=== PATIENT | female | born 1930 | race Caucasian/White ===

== ENCOUNTER → 2017-03-21 | Outpatient (CLI) | payer MEDICARE ==
[2014-06-19 15:42] VITALS: BP 133/53
[~2017-03-21] MED LIST: AMIT10TA PO; FENO135C PO; METO100T5 PO; OLME1TAB25 PO
--- NOTE | 2017-03-21 15:48 | RAD ---
DATE: 03/21/2017. EXAM: DIGITAL SCREEN BILAT W/CAD. HISTORY: Routine mammographic screening. COMPARISON: 02/15/2016, 02/01/2015, 03/21/2009. This study was interpreted with the benefit of Computerized Aided Detection (CAD). FINDINGS: The breast parenchyma heterogeneously dense, which could reduce sensitivity of mammography. There are no suspicious masses, microcalcifications or architectural distortion. A density laterally on the left CC view correlates with a previously marked skin lesion. Scattered and vascular calcifications are benign. BI-RADS CATEGORY: 2 BENIGN FINDING(S). RECOMMENDED FOLLOW-UP: 12M 12 MONTH FOLLOW-UP. PQRS compliance statement: Patient information was entered into a reminder system with a target due date 03/21/2018 for the next mammogram. Mammography is a sensitive method for finding small breast cancers, but it does not detect them all and is not a substitute for careful clinical examination. A negative mammogram does not negate a clinically suspicious finding and should not result in delay in biopsying a clinically suspicious abnormality. "Our facility is accredited by the [employer] Mammography Program."
== END ==
LOC: MAMMO 12:54
PROVIDERS: ATTEND Internal Medicine
DX: Z12.31 Encounter for screening mammogram for malignant neoplasm of breast (principal)
CPT/HCPCS: G0202; 77067

== ENCOUNTER 2017-11-06 17:46 | Inpatient (IN) | payer MEDICARE ==
[2017-11-06 18:20] LABS: ADD MAN DIFF? NO
[2017-11-06 18:22] LABS: BASO % 0 % (0-3); EOS % 0 % (0-3); HEMATOCRIT 31.1 % (36.0-47.0); HEMOGLOBIN 10.6 g/dL (12.0-15.5); LYMPH # 1.1 x10^3/uL (1.0-4.8); LYMPH % 25 % (24-48); MEAN CORPUSCULAR HEMOGLOBIN 30 pg (25-35); MEAN CORPUSCULAR HGB CONC 34 g/dL (31-37); MEAN CORPUSCULAR VOLUME 90 fL (79-100); MONO # 0.3 x10^3/uL (0.0-1.1); MONO % 8 % (0-9); NEUT # 2.9 x10^3uL (1.8-7.7); NEUT % 66 % (31-73); PLATELET COUNT 210 x10^3/uL (140-400); RED BLOOD COUNT 3.47 x10^6/uL (3.50-5.40); RED CELL DISTRIBUTION WIDTH 12.8 % (11.5-14.5); WHITE BLOOD COUNT 4.3 x10^3/uL (4.0-11.0)
[2017-11-06 18:37] LABS: ANION GAP 15 (6-14); BLOOD UREA NITROGEN 24 mg/dL (7-20); BUN/CREATININE RATIO 17 (6-20); CALCIUM 8.8 mg/dL (8.5-10.1); CARBON DIOXIDE 22 mmol/L (21-32); CHLORIDE 95 mmol/L (98-107); CREATININE 1.4 mg/dL (0.6-1.0); GFR 35.5; GLUCOSE 111 mg/dL (70-99); POTASSIUM 3.2 mmol/L (3.5-5.1); SODIUM 132 mmol/L (136-145)
[2017-11-06 18:43] LABS: ALBUMIN 3.4 g/dL (3.4-5.0); ALK PHOS 63 U/L (46-116); ALT (SGPT) 21 U/L (14-59); AST (SGOT) 28 U/L (15-37); CREATINE KINASE 119 U/L (26-192); LIPASE 49 U/L (73-393); MAGNESIUM 1.1 mg/dL (1.8-2.4); TOTAL BILIRUBIN 0.4 mg/dL (0.2-1.0); TOTAL PROTEIN 6.7 g/dL (6.4-8.2)
[2017-11-06 18:43] LABS: TROPONINI < 0.017 ng/mL (0.000-0.055)
[2017-11-06 18:47] LABS: NT-PRO BNP 1531 pg/mL (0-449)
[2017-11-06 18:56] LABS: BILIRUBIN,URINE NEGATIVE (NEG); CLARITY,URINE CLEAR; COLOR,URINE YELLOW; GLUCOSE,URINE NEGATIVE (NEG); NITRITE,URINE NEGATIVE (NEG); PH,URINE 5.5; PROTEIN,URINE NEGATIVE (NEG-TRACE); UROBILINOGEN,URINE 0.2 mg/dL (0.2 mg/dL)
[2017-11-06] MEDS ORDERED: fentaNYL PF VIAL 100 MCG/2 ML VIAL IV (19:00)
[2017-11-06 19:01] LABS: BACTERIA,URINE 0 /HPF (0-FEW); RBC,URINE 0 /HPF (0-2); SQUAMOUS EPITHELIAL CELL,UR FEW /LPF; WBC,URINE 0 /HPF (0-4)
[2017-11-06] MEDS: MAGNESIUM OXIDE 400 MG TABLET PO (19:39)
[2017-11-06] MEDS: POTASSIUM CHLORIDE 20 MEQ TABLET.ER. PO (19:39)
[2017-11-06] MEDS: POTASSIUM CL 40MEQ IN 0.9%NACL 1,000 ML IV (19:40)
[2017-11-06] MEDS: MAGNESIUM SULFATE 2GM 50 ML IV (19:40)
[2017-11-06] MEDS: ONDANSETRON PF 4 MG/2 ML VIAL. IV (20:55)
[2017-11-06] MEDS: CIPROFLOXACIN 400MG PREMIX 200 ML IV (23:24)
[2017-11-07 05:50] LABS: ADD MAN DIFF? NO
[2017-11-07 06:10] LABS: BASO % 0 % (0-3); EOS % 1 % (0-3); HEMATOCRIT 31.4 % (36.0-47.0); HEMOGLOBIN 10.7 g/dL (12.0-15.5); LYMPH # 0.8 x10^3/uL (1.0-4.8); LYMPH % 18 % (24-48); MEAN CORPUSCULAR HEMOGLOBIN 31 pg (25-35); MEAN CORPUSCULAR HGB CONC 34 g/dL (31-37); MEAN CORPUSCULAR VOLUME 91 fL (79-100); MONO # 0.3 x10^3/uL (0.0-1.1); MONO % 7 % (0-9); NEUT # 3.3 x10^3uL (1.8-7.7); NEUT % 74 % (31-73); PLATELET COUNT 215 x10^3/uL (140-400); RED BLOOD COUNT 3.46 x10^6/uL (3.50-5.40); RED CELL DISTRIBUTION WIDTH 12.6 % (11.5-14.5); WHITE BLOOD COUNT 4.5 x10^3/uL (4.0-11.0)
[2017-11-07] MEDS ORDERED: fentaNYL PF VIAL 100 MCG/2 ML VIAL IV (06:30)
[2017-11-07 06:31] LABS: ANION GAP 12 (6-14); BLOOD UREA NITROGEN 18 mg/dL (7-20); CALCIUM 8.5 mg/dL (8.5-10.1); CARBON DIOXIDE 21 mmol/L (21-32); CHLORIDE 105 mmol/L (98-107); CREATININE 1.3 mg/dL (0.6-1.0); GFR 38.7; GLUCOSE 102 mg/dL (70-99); POTASSIUM 4.5 mmol/L (3.5-5.1); SODIUM 138 mmol/L (136-145)
[2017-11-07 06:46] LABS: MAGNESIUM 1.9 mg/dL (1.8-2.4)
[2017-11-07] MEDS: METOPROLOL TART IMMED RELEASE 50 MG TABLET. PO ×2 (08:08→21:14)
[2017-11-07] MEDS: AMITRIPTYLINE HCL 10 MG TABLET. PO (08:09)
[2017-11-07] MEDS: LOSARTAN POTASSIUM 25 MG TABLET. PO (08:09)
[2017-11-07] MEDS: FUROSEMIDE 40 MG/4 ML VIAL. IVP (16:18)
[2017-11-07] MEDS: PANTOPRAZOLE 40 MG TABLET.DR. PO (16:19)
[2017-11-07] MEDS ORDERED: FUROSEMIDE 40 MG/4 ML VIAL. IVP (17:00)
[2017-11-07 17:12] LABS: BASE EXCESS ABG -2 mmol/L (-3-3); HCO3 ABG 22 mmol/L (21-28); PCO2 ABG 34 mmHg (35-46); PH ABG 7.42 (7.35-7.45); PO2 ABG 64 mmHg (65-108); SAT O2 ABG 92 % (92-99)
[2017-11-07] MEDS: ISOSORBIDE MONONITRATE ER 30 MG TAB.ER.24H PO (17:13)
[2017-11-07] MEDS ORDERED: hydrALAZINE 20 MG/ML VIAL. IVP (17:15)
[2017-11-07 17:20] LABS: FIO2 ABG 100
[2017-11-07] MEDS: ONDANSETRON PF 4 MG/2 ML VIAL. IV (18:42)
[2017-11-07 20:13] LABS: C DIFF BY PCR Negative (Negative)
[2017-11-07] MEDS ORDERED: HYDROcodone/APAP 5/325MG 1 TAB TABLET PO (20:15)
[2017-11-07] MEDS: ACETAMINOPHEN 325 MG TABLET. PO (20:26)
[2017-11-07] MEDS: CIPROFLOXACIN 400MG PREMIX 200 ML IV (21:12)
[2017-11-07] MEDS: LACTOBACILLUS RHAMNOSUS GG 1 CAPSULE. PO (21:14)
[2017-11-08 04:22] LABS: MRSA BY PCR Negative (Negative)
[2017-11-08 04:51] LABS: ADD MAN DIFF? NO
[2017-11-08 04:55] LABS: BASO % 0 % (0-3); EOS % 0 % (0-3); HEMOGLOBIN 10.5 g/dL (12.0-15.5); LYMPH # 1.1 x10^3/uL (1.0-4.8); LYMPH % 17 % (24-48); MEAN CORPUSCULAR HEMOGLOBIN 31 pg (25-35); MEAN CORPUSCULAR HGB CONC 34 g/dL (31-37); MEAN CORPUSCULAR VOLUME 91 fL (79-100); MONO # 0.7 x10^3/uL (0.0-1.1); MONO % 11 % (0-9); NEUT # 4.9 x10^3uL (1.8-7.7); NEUT % 72 % (31-73); PLATELET COUNT 212 x10^3/uL (140-400); RED BLOOD COUNT 3.42 x10^6/uL (3.50-5.40); RED CELL DISTRIBUTION WIDTH 12.9 % (11.5-14.5); WHITE BLOOD COUNT 6.8 x10^3/uL (4.0-11.0)
[2017-11-08 05:19] LABS: ANION GAP 8 (6-14); BLOOD UREA NITROGEN 14 mg/dL (7-20); CALCIUM 8.4 mg/dL (8.5-10.1); CARBON DIOXIDE 28 mmol/L (21-32); CHLORIDE 102 mmol/L (98-107); CREATININE 1.3 mg/dL (0.6-1.0); GFR 38.7; GLUCOSE 107 mg/dL (70-99); MAGNESIUM 1.4 mg/dL (1.8-2.4); POTASSIUM 3.5 mmol/L (3.5-5.1); SODIUM 138 mmol/L (136-145)
[2017-11-08] MEDS: LACTOBACILLUS RHAMNOSUS GG 1 CAPSULE. PO ×2 (08:24→20:28)
[2017-11-08] MEDS: PANTOPRAZOLE 40 MG TABLET.DR. PO (08:24)
[2017-11-08] MEDS: AMITRIPTYLINE HCL 10 MG TABLET. PO (08:25)
[2017-11-08] MEDS: LOSARTAN POTASSIUM 25 MG TABLET. PO (08:25)
[2017-11-08] MEDS: METOPROLOL TART IMMED RELEASE 50 MG TABLET. PO ×2 (08:26→20:29)
[2017-11-08] MEDS: FUROSEMIDE 40 MG/4 ML VIAL. IVP (08:26)
[2017-11-08] MEDS ORDERED: POTASSIUM CHLORIDE 20MEQ 50 ML IV (09:45)
[2017-11-08] MEDS: MAGNESIUM SULFATE 2GM 50 ML IV (10:34)
[2017-11-08] MEDS: POTASSIUM CHLORIDE 10 MEQ in IV NORMAL SALINE 100ML 100 ML IV ×2 (10:36→11:46)
[2017-11-08] MEDS: ACETAMINOPHEN 325 MG TABLET. PO (20:28)
[2017-11-08] MEDS: CIPROFLOXACIN 400MG PREMIX 200 ML IV (20:28)
[2017-11-08] MEDS: MONTELUKAST SODIUM 10 MG TABLET. PO (20:29)
[2017-11-09 05:17] LABS: ADD MAN DIFF? NO
[2017-11-09 05:24] LABS: BASO % 0 % (0-3); EOS # 0.1 x10^3/uL (0.0-0.7); EOS % 2 % (0-3); HEMATOCRIT 31.9 % (36.0-47.0); HEMOGLOBIN 10.9 g/dL (12.0-15.5); LYMPH # 1.2 x10^3/uL (1.0-4.8); LYMPH % 23 % (24-48); MEAN CORPUSCULAR HEMOGLOBIN 31 pg (25-35); MEAN CORPUSCULAR HGB CONC 34 g/dL (31-37); MEAN CORPUSCULAR VOLUME 91 fL (79-100); MONO # 0.7 x10^3/uL (0.0-1.1); MONO % 14 % (0-9); NEUT # 3.1 x10^3uL (1.8-7.7); NEUT % 60 % (31-73); PLATELET COUNT 212 x10^3/uL (140-400); RED BLOOD COUNT 3.51 x10^6/uL (3.50-5.40); RED CELL DISTRIBUTION WIDTH 12.7 % (11.5-14.5); WHITE BLOOD COUNT 5.2 x10^3/uL (4.0-11.0)
[2017-11-09 05:49] LABS: ANION GAP 7 (6-14); BLOOD UREA NITROGEN 13 mg/dL (7-20); CALCIUM 8.7 mg/dL (8.5-10.1); CARBON DIOXIDE 28 mmol/L (21-32); CHLORIDE 103 mmol/L (98-107); CREATININE 1.3 mg/dL (0.6-1.0); GFR 38.7; GLUCOSE 110 mg/dL (70-99); MAGNESIUM 1.6 mg/dL (1.8-2.4); SODIUM 138 mmol/L (136-145)
[2017-11-09] MEDS: LACTOBACILLUS RHAMNOSUS GG 1 CAPSULE. PO ×2 (08:43→21:30)
[2017-11-09] MEDS: PANTOPRAZOLE 40 MG TABLET.DR. PO (08:43)
[2017-11-09] MEDS: FUROSEMIDE 40 MG/4 ML VIAL. IVP (08:44)
[2017-11-09] MEDS: AMITRIPTYLINE HCL 10 MG TABLET. PO (08:44)
[2017-11-09] MEDS: METOPROLOL TART IMMED RELEASE 50 MG TABLET. PO ×2 (08:44→21:32)
[2017-11-09] MEDS: LOSARTAN POTASSIUM 25 MG TABLET. PO (08:44)
[2017-11-09] MEDS: POTASSIUM CHLORIDE 20 MEQ TABLET.ER. PO ×2 (15:22)
[2017-11-09] MEDS: ENOXAPARIN 40 MG/0.4 ML SYRINGE. SQ (15:33)
[2017-11-09] MEDS: MONTELUKAST SODIUM 10 MG TABLET. PO (21:30)
[2017-11-09] MEDS: CIPROFLOXACIN 400MG PREMIX 200 ML IV (21:30)
[2017-11-09] MEDS: ACETAMINOPHEN 325 MG TABLET. PO (21:41)
[2017-11-10 05:07] LABS: ADD MAN DIFF? NO
[2017-11-10 05:10] LABS: BASO % 0 % (0-3); EOS # 0.2 x10^3/uL (0.0-0.7); EOS % 3 % (0-3); HEMATOCRIT 32.3 % (36.0-47.0); HEMOGLOBIN 11.1 g/dL (12.0-15.5); LYMPH # 1.5 x10^3/uL (1.0-4.8); LYMPH % 22 % (24-48); MEAN CORPUSCULAR HEMOGLOBIN 31 pg (25-35); MEAN CORPUSCULAR HGB CONC 34 g/dL (31-37); MEAN CORPUSCULAR VOLUME 91 fL (79-100); MONO # 0.8 x10^3/uL (0.0-1.1); MONO % 12 % (0-9); NEUT # 4.1 x10^3uL (1.8-7.7); NEUT % 62 % (31-73); PLATELET COUNT 239 x10^3/uL (140-400); RED BLOOD COUNT 3.56 x10^6/uL (3.50-5.40); RED CELL DISTRIBUTION WIDTH 12.8 % (11.5-14.5); WHITE BLOOD COUNT 6.6 x10^3/uL (4.0-11.0)
[2017-11-10 05:33] LABS: ANION GAP 10 (6-14); BLOOD UREA NITROGEN 17 mg/dL (7-20); CALCIUM 8.5 mg/dL (8.5-10.1); CARBON DIOXIDE 25 mmol/L (21-32); CHLORIDE 101 mmol/L (98-107); CREATININE 1.3 mg/dL (0.6-1.0); GFR 38.7; GLUCOSE 109 mg/dL (70-99); MAGNESIUM 1.2 mg/dL (1.8-2.4); POTASSIUM 3.5 mmol/L (3.5-5.1); SODIUM 136 mmol/L (136-145)
[2017-11-10] MEDS: PANTOPRAZOLE 40 MG TABLET.DR. PO (08:54)
[2017-11-10] MEDS: LACTOBACILLUS RHAMNOSUS GG 1 CAPSULE. PO ×2 (08:54→20:48)
[2017-11-10] MEDS: METOPROLOL TART IMMED RELEASE 50 MG TABLET. PO ×2 (08:55→20:49)
[2017-11-10] MEDS: LOSARTAN POTASSIUM 25 MG TABLET. PO (08:55)
[2017-11-10] MEDS: FUROSEMIDE 40 MG TABLET. PO (08:55)
[2017-11-10] MEDS: AMITRIPTYLINE HCL 10 MG TABLET. PO (08:55)
[2017-11-10] MEDS: ONDANSETRON PF 4 MG/2 ML VIAL. IV (11:07)
[2017-11-10] MEDS: CIPROFLOXACIN HCL 250 MG TABLET. PO ×2 (13:14→22:06)
[2017-11-10] MEDS: metroNIDAZOLE 500 MG TABLET PO ×2 (14:52→22:06)
[2017-11-10] MEDS: ENOXAPARIN 40 MG/0.4 ML SYRINGE. SQ (15:28)
[2017-11-10] MEDS: MONTELUKAST SODIUM 10 MG TABLET. PO (20:48)
[2017-11-10] MEDS: ACETAMINOPHEN 325 MG TABLET. PO (22:06)
[2017-11-11 05:54] LABS: ADD MAN DIFF? NO
[2017-11-11 06:09] LABS: BASO % 0 % (0-3); EOS # 0.2 x10^3/uL (0.0-0.7); EOS % 4 % (0-3); HEMOGLOBIN 10.8 g/dL (12.0-15.5); LYMPH # 1.5 x10^3/uL (1.0-4.8); LYMPH % 25 % (24-48); MEAN CORPUSCULAR HEMOGLOBIN 31 pg (25-35); MEAN CORPUSCULAR HGB CONC 34 g/dL (31-37); MEAN CORPUSCULAR VOLUME 90 fL (79-100); MONO # 0.8 x10^3/uL (0.0-1.1); MONO % 12 % (0-9); NEUT # 3.6 x10^3uL (1.8-7.7); NEUT % 59 % (31-73); PLATELET COUNT 239 x10^3/uL (140-400); RED BLOOD COUNT 3.53 x10^6/uL (3.50-5.40); RED CELL DISTRIBUTION WIDTH 12.8 % (11.5-14.5); WHITE BLOOD COUNT 6.1 x10^3/uL (4.0-11.0)
[2017-11-11] MEDS: metroNIDAZOLE 500 MG TABLET PO ×2 (06:13→14:16)
[2017-11-11 06:19] LABS: ANION GAP 9 (6-14); BLOOD UREA NITROGEN 22 mg/dL (7-20); CALCIUM 8.4 mg/dL (8.5-10.1); CARBON DIOXIDE 27 mmol/L (21-32); CHLORIDE 101 mmol/L (98-107); CREATININE 1.4 mg/dL (0.6-1.0); GFR 35.5; GLUCOSE 109 mg/dL (70-99); MAGNESIUM 1.1 mg/dL (1.8-2.4); POTASSIUM 3.4 mmol/L (3.5-5.1); SODIUM 137 mmol/L (136-145)
[2017-11-11] MEDS: PANTOPRAZOLE 40 MG TABLET.DR. PO ×2 (07:30→09:08)
[2017-11-11] MEDS: ONDANSETRON PF 4 MG/2 ML VIAL. IV (09:02)
[2017-11-11] MEDS: LOSARTAN POTASSIUM 25 MG TABLET. PO (09:07)
[2017-11-11] MEDS: FUROSEMIDE 40 MG TABLET. PO (09:07)
[2017-11-11] MEDS: METOPROLOL TART IMMED RELEASE 50 MG TABLET. PO (09:08)
[2017-11-11] MEDS: LACTOBACILLUS RHAMNOSUS GG 1 CAPSULE. PO (09:08)
[2017-11-11] MEDS: CIPROFLOXACIN HCL 250 MG TABLET. PO (09:08)
[2017-11-11] MEDS: AMITRIPTYLINE HCL 10 MG TABLET. PO (09:08)
[2017-11-11] MEDS: POTASSIUM CHLORIDE 20 MEQ TABLET.ER. PO (12:11)
[2017-11-11] MEDS: CALCIUM CARBONATE 500 MG TAB.CHEW PO (12:11)
[2017-11-11] MEDS: MAGNESIUM SULFATE 4GM 100 ML IV (12:12)
[2017-11-11] MEDS: MAGNESIUM OXIDE 400 MG TABLET PO (14:16)
[2017-11-11] MEDS: ENOXAPARIN 40 MG/0.4 ML SYRINGE. SQ (16:00)
[2017-11-11 17:37] LABS: ADD MAN DIFF? NO
[2017-11-11 17:42] LABS: BASO % 0 % (0-3); EOS # 0.1 x10^3/uL (0.0-0.7); EOS % 2 % (0-3); HEMATOCRIT 35.4 % (36.0-47.0); LYMPH # 1.4 x10^3/uL (1.0-4.8); LYMPH % 24 % (24-48); MEAN CORPUSCULAR HEMOGLOBIN 31 pg (25-35); MEAN CORPUSCULAR HGB CONC 34 g/dL (31-37); MEAN CORPUSCULAR VOLUME 90 fL (79-100); MONO # 0.7 x10^3/uL (0.0-1.1); MONO % 12 % (0-9); NEUT # 3.5 x10^3uL (1.8-7.7); NEUT % 61 % (31-73); PLATELET COUNT 288 x10^3/uL (140-400); RED BLOOD COUNT 3.93 x10^6/uL (3.50-5.40); RED CELL DISTRIBUTION WIDTH 12.7 % (11.5-14.5); WHITE BLOOD COUNT 5.7 x10^3/uL (4.0-11.0)
[2017-11-11 18:04] LABS: ANION GAP 11 (6-14); BLOOD UREA NITROGEN 23 mg/dL (7-20); CALCIUM 8.8 mg/dL (8.5-10.1); CARBON DIOXIDE 27 mmol/L (21-32); CHLORIDE 102 mmol/L (98-107); CREATININE 1.5 mg/dL (0.6-1.0); GFR 32.8; GLUCOSE 101 mg/dL (70-99); POTASSIUM 4.1 mmol/L (3.5-5.1); SODIUM 140 mmol/L (136-145)
[2017-11-11 18:04] LABS: MAGNESIUM 1.1 mg/dL (1.8-2.4)
== END 2017-11-11 15:00 | disposition home or self-care (01) | DRG 682 ==
LOC: 1 WEST ICU 11-07 15:37 → 5 SOUTH 11-08 15:34 → ER 17:46 → 5 SOUTH 18:32
DX: N17.0 Acute kidney failure with tubular necrosis (principal); J96.01 Acute respiratory failure with hypoxia; I50.31 Acute diastolic (congestive) heart failure; K57.32 Diverticulitis of large intestine without perforation or abscess without bleeding; E87.1 Hypo-osmolality and hyponatremia; E83.42 Hypomagnesemia; I13.0 Hypertensive heart and chronic kidney disease with heart failure and stage 1 through stage 4 chronic kidney disease, or unspecified chronic kidney disease; N39.0 Urinary tract infection, site not specified; D64.9 Anemia, unspecified; E78.5 Hyperlipidemia, unspecified; E87.6 Hypokalemia; I48.91 Unspecified atrial fibrillation; K21.9 Gastro-esophageal reflux disease without esophagitis; K52.9 Noninfective gastroenteritis and colitis, unspecified; K64.9 Unspecified hemorrhoids; K80.20 Calculus of gallbladder without cholecystitis without obstruction; N18.2 Chronic kidney disease, stage 2 (mild); M19.90 Unspecified osteoarthritis, unspecified site; Z82.3 Family history of stroke; Z82.49 Family history of ischemic heart disease and other diseases of the circulatory system; Z82.5 Family history of asthma and other chronic lower respiratory diseases; Z83.2 Family history of diseases of the blood and blood-forming organs and certain disorders involving the immune mechanism; Z83.3 Family history of diabetes mellitus; Z85.828 Personal history of other malignant neoplasm of skin; Z87.440 Personal history of urinary (tract) infections; Z90.710 Acquired absence of both cervix and uterus; Z98.49 Cataract extraction status, unspecified eye; Z88.1 Allergy status to other antibiotic agents
CPT/HCPCS: 36415; 36600; 71045; 74176; 78582; 80048; 80053; 81001; 82550; 82805; 83690; 83735; 83880; 84484; 85025; 87086; 87324; 87641; 93005; 93306; 93970; 96365; 96366; 96368; 96374; 96375; 97161-GP; 97165-GO; 99285-25; A9540; A9558; J0744; J1650; J1940; J2405; J3475; J3480; J3490